=== PATIENT | female | born 1980 | race Hispanic/Latino ===

== ENCOUNTER 2017-11-06 22:33 | Emergency (ER) | payer MEDICAID ==
[2017-11-06] MEDS ORDERED: SODIUM CHLORIDE 0.9% 1000ML 1,000 ML IV ONE (22:58)
[2017-11-06] MEDS ORDERED: HYDROCODONE/ACETAMINOPHEN 5/325 MG TAB ONE (22:59)
[2017-11-06 23:01] LABS: BASOPHILS % (AUTO) 0.5 % (0.0-5.0); EOSINOPHILS % (AUTO) 2.5 % (0.0-8.0); HEMATOCRIT 39.9 % (36-48); LYMPHOCYTES % (AUTO) 34.4 % (21.0-51.0); MEAN CORPUSCULAR HEMOGLOBIN 28.8 pg (27.0-33.0); MEAN CORPUSCULAR HGB CONC 33.6 g/dL (32.0-36.0); MEAN CORPUSCULAR VOLUME 85.8 fL (79-99); MONOCYTES % (AUTO) 8.4 % (3.0-13.0); NEUTROPHILS % (AUTO) 54.2 % (40.0-77.0); PLATELET COUNT (AUTO) 294 K/uL (130-400); RED BLOOD CELL COUNT(AUTO) 4.66 MIL/uL (4.00-5.50); RED CELL DISTRIBUTION WIDTH 13.9 % (11.0-15.5); WHITE BLOOD COUNT (AUTO) 7.9 K/uL (4.8-10.8)
[2017-11-06] MEDS ORDERED: HYDROCODONE/ACETAMINOPHEN 7.5/325 MG 15 ML UDCUP ONE (23:02)
[2017-11-06 23:03] LABS: APPEARANCE,URINE Cloudy (CLEAR); BILIRUBIN,URINE Negative (NEGATIVE); COLOR,URINE Yellow (YELLOW); GLUCOSE, URINE (UA) Negative (NEGATIVE); KETONES,URINE Trace mg/dL (NEGATIVE); LEUKOCYTE ESTERASE ,URINE Negative (NEGATIVE); NITRATE,URINE Negative (NEGATIVE); OCCULT BLOOD,URINE Negative (NEGATIVE); PROTEIN,URINE Negative (NEGATIVE)
[2017-11-06 23:08] LABS: BACTERIA,URINE Few /HPF (None Seen); MUCUS,URINE Many LPF (None Seen); RBC,URINE None Seen /HPF (0-1); SQUAMOUS EPITHELIAL CELL,UR 30-50 /HPF (0-2); WBC,URINE 0-1 /HPF (0-1)
[2017-11-06 23:10] LABS: CREATININE 0.9 mg/dL (0.5-1.5); POTASSIUM 3.6 mmol/L (3.5-5.1)
[2017-11-06 23:14] LABS: ALBUMIN 3.6 g/dL (3.5-5.0); BILIRUBIN,TOTAL 0.2 mg/dL (0.2-1.0); TOTAL PROTEIN, SERUM 7.5 g/dL (6.0-8.3)
[2017-11-06] MEDS ORDERED: ISOVUE-370 50ML VIAL IV ONE ×2 (23:15→23:16)
== END 2017-11-07 00:05 | disposition home or self-care (01) ==
LOC: EDH 22:33
DX: R10.13 Epigastric pain (principal); R19.7 Diarrhea, unspecified; R11.0 Nausea; J45.909 Unspecified asthma, uncomplicated; Z98.51 Tubal ligation status; Z90.49 Acquired absence of other specified parts of digestive tract; Z91.040 Latex allergy status
CPT/HCPCS: 36415; 74177; 80053; 81001; 81025; 85025; 96360; 99285; J7030; Q9967 ×2

== ENCOUNTER 2017-11-11 07:57 | Emergency (ER) | payer MEDICAID ==
[2017-11-11 08:28] LABS: BASOPHILS % (AUTO) 0.8 % (0.0-5.0); EOSINOPHILS % (AUTO) 3.6 % (0.0-8.0); HEMATOCRIT 37.8 % (36-48); MEAN CORPUSCULAR HEMOGLOBIN 28.8 pg (27.0-33.0); MEAN CORPUSCULAR HGB CONC 34.2 g/dL (32.0-36.0); MEAN CORPUSCULAR VOLUME 84.2 fL (79-99); MONOCYTES % (AUTO) 7.7 % (3.0-13.0); NEUTROPHILS % (AUTO) 53.9 % (40.0-77.0); NUCLEATED RED BLOOD CELLS 0.1 % (0.0-0.19); PLATELET COUNT (AUTO) 235 K/uL (130-400); RED BLOOD CELL COUNT(AUTO) 4.49 MIL/uL (4.00-5.50); RED CELL DISTRIBUTION WIDTH 14.2 % (11.0-15.5); WHITE BLOOD COUNT (AUTO) 5.2 K/uL (4.8-10.8)
[2017-11-11 08:34] LABS: APPEARANCE,URINE Cloudy (CLEAR); BILIRUBIN,URINE Negative (NEGATIVE); COLOR,URINE Yellow (YELLOW); GLUCOSE, URINE (UA) Negative (NEGATIVE); KETONES,URINE Negative (NEGATIVE); LEUKOCYTE ESTERASE ,URINE Negative (NEGATIVE); NITRATE,URINE Negative (NEGATIVE); OCCULT BLOOD,URINE Negative (NEGATIVE); PROTEIN,URINE Negative (NEGATIVE)
[2017-11-11 08:50] LABS: CREATININE 0.7 mg/dL (0.5-1.5); POTASSIUM 3.9 mmol/L (3.5-5.1)
[2017-11-11 08:54] LABS: ALBUMIN 3.6 g/dL (3.5-5.0); BILIRUBIN,TOTAL 0.3 mg/dL (0.2-1.0); TOTAL PROTEIN, SERUM 7.4 g/dL (6.0-8.3)
[2017-11-11] MEDS ORDERED: SODIUM CHLORIDE 0.9% 1000ML 1,000 ML IV ONE (09:15)
[2017-11-11] MEDS ORDERED: DIATR MEGLU/DIATRIZOATE SODIUM 30 ML BOTTLE ONE (10:09)
[2017-11-11] MEDS ORDERED: FENTANYL CITRATE PF 50 MCG/1 ML 2ML VIAL ONE (10:50)
[2017-11-11] MEDS ORDERED: IOPAMIDOL-370 75 ML VIAL IV ONE (12:13)
== END 2017-11-11 14:35 | disposition home or self-care (01) ==
LOC: EDH 07:57
DX: G89.18 Other acute postprocedural pain (principal); J45.909 Unspecified asthma, uncomplicated; R10.12 Left upper quadrant pain; Z88.8 Allergy status to other drugs, medicaments and biological substances; Z91.040 Latex allergy status
CPT/HCPCS: 36415; 74177; 80053; 81003; 81025; 83690; 85025; 96361; 96374; 99285; J3010; J7030; Q9963; Q9967

== ENCOUNTER 2020-04-28 07:51 | Day surgery (SDC) | payer MEDICAID ==
[~2020-04-28] VITALS: Ht 160 cm; Wt 81.6 kg
[~2020-04-28 07:51] MED LIST: SODIUM CHLORIDE 0.9% 1000ML 1,000 ML IV ONE
[2020-04-28 10:01] VITALS: BP 121/83
[2020-04-28] MEDS ORDERED: MULT-1203 PO (10:44)
[2020-04-28] MEDS ORDERED: AUD IH (10:44)
[2020-04-28] MEDS ORDERED: FAMO10TA39 PO (10:44)
[2020-04-28] MEDS ORDERED: SERT100T PO (10:44)
[2020-04-28] MEDS ORDERED: PROPOFOL 10 MG/ML 20ML VIAL IV ONE (11:31)
[2020-04-28] MEDS ORDERED: LIDOCAINE HCL-MPF 2% 5ML VIAL ONE (11:32)
[2020-04-28] MEDS ORDERED: GLYCOPYRROLATE 1 MG/5 ML SYRINGE ONE (11:32)
[2020-04-28 11:43] VITALS: BP 102/48
[2020-04-28 11:48] VITALS: BP 103/48
[2020-04-28 11:53] VITALS: BP 108/53
[2020-04-28 11:58] VITALS: BP 111/60
[2020-04-28 12:03] VITALS: BP 114/67
== END 2020-04-28 12:15 | disposition home or self-care (01) ==
LOC: DAH 07:51 → ENDO 07:51
PROVIDERS: ATTEND Surgery
DX: K21.9 Gastro-esophageal reflux disease without esophagitis (principal); K29.50 Unspecified chronic gastritis without bleeding; Z98.84 Bariatric surgery status; Z20.828 Contact with and (suspected) exposure to other viral communicable diseases
CPT/HCPCS: 36415; 43239; 88305; 88342; A4215; A4221; A4222; A4223; A4606; A4620; A4663; C9803; J2704; J3490 ×2; J7030; U0003

== ENCOUNTER 2020-05-19 12:00 | Inpatient (IN) | payer MEDICAID ==
[~2020-05-19] VITALS: Ht 157.5 cm; Wt 80.8 kg
[~2020-05-19 12:00] MED LIST changes: +AUD IH; +MULT-1203 PO; +SERT100T PO; -SODIUM CHLORIDE 0.9% 1000ML 1,000 ML IV ONE
[2020-05-21 12:16] LABS: BASOPHILS % (AUTO) 0.6 % (0.0-5.0); EOSINOPHILS % (AUTO) 1.9 % (0.0-8.0); HEMATOCRIT 36.4 % (36-48); LYMPHOCYTES % (AUTO) 35.3 % (21.0-51.0); MEAN CORPUSCULAR HEMOGLOBIN 24.7 pg (27.0-33.0); MEAN CORPUSCULAR HGB CONC 30.5 g/dL (32.0-36.0); MEAN CORPUSCULAR VOLUME 81.1 fL (79-99); MONOCYTES % (AUTO) 7.7 % (3.0-13.0); NEUTROPHILS % (AUTO) 54.3 % (40.0-77.0); PLATELET COUNT (AUTO) 330 K/uL (130-400); RED BLOOD CELL COUNT(AUTO) 4.49 MIL/uL (4.00-5.50); RED CELL DISTRIBUTION WIDTH 13.8 % (11.0-15.5); WHITE BLOOD COUNT (AUTO) 5.2 K/uL (4.8-10.8)
[2020-05-21 12:32] LABS: INR 0.94 (0.85-1.15); PARTIAL THROMBOPLASTIN TIME 25.9 SEC (26.3-35.5); PROTHROMBIN TIME 10.2 SEC (9.6-11.6)
[2020-05-23] MEDS ORDERED: SODIUM CHLORIDE 0.9% 1000ML 1,000 ML IV SCH (11:30)
[2020-05-23 12:24] VITALS: BP 133/79
[2020-05-23] MEDS ORDERED: HYDR-3830 PO (12:42)
[2020-05-26] VITALS (22 sets, daily range): BP systolic 110–145; BP diastolic 20–92
[2020-05-26] MEDS: CEFAZOLIN SODIUM 1 GM VIAL IVP SCH ×3 (06:00→16:18)
[2020-05-26] MEDS ORDERED: MULT-1192 PO (07:19)
[2020-05-26] MEDS ORDERED: LIDOCAINE PF 2% 5ML ABBOJECT ONE (07:35)
[2020-05-26] MEDS ORDERED: MIDAZOLAM HCL 1 MG/ML 2ML VIAL ONE (07:36)
[2020-05-26] MEDS ORDERED: PROPOFOL 10 MG/ML 20ML VIAL IV ONE ×2 (07:37→09:43)
[2020-05-26] MEDS ORDERED: ROCURONIUM 10MG/1ML SYR 10 MG/ML ML ONE (07:37)
[2020-05-26] MEDS ORDERED: ONDANSETRON HCL 4 MG/2 ML VIAL ONE ×2 (07:37→08:55)
[2020-05-26] MEDS ORDERED: FENTANYL CITRATE PF 50 MCG/1 ML 2ML VIAL ONE ×2 (07:38→09:19)
[2020-05-26] MEDS ORDERED: CITRIC ACID/SODIUM CITRATE 30 ML UDCUP ONE (07:43)
[2020-05-26] MEDS ORDERED: FAMOTIDINE/PF 20 MG/2 ML VIAL IV ONE (07:44)
[2020-05-26] MEDS ORDERED: KETAMINE HCL 100 MG/ML 5ML VIAL IJ ONE (08:31)
[2020-05-26] MEDS ORDERED: BUPIVACAINE/PF 0.5% 30ML VIAL ONE (08:31)
[2020-05-26] MEDS ORDERED: GLYCOPYRROLATE 1 MG/5 ML SYRINGE ONE ×2 (08:35→10:08)
[2020-05-26] MEDS ORDERED: NEOSTIGMINE 5MG/5ML SYR IV ONE (10:09)
[2020-05-26] MEDS ORDERED: SCOPOLAMINE HYDROBROMIDE 1 EACH ADH..PATCH TD ONE (10:37)
[2020-05-26] MEDS ORDERED: ONDANSETRON HCL 4 MG/2 ML VIAL IVP PRN (10:45)
[2020-05-26] MEDS ORDERED: HYDRALAZINE HCL 20 MG/ML VIAL IV PRN (10:45)
[2020-05-26] MEDS: LACTATED RINGERS 1000ML 1,000 ML IV SCH ×2 (10:45→18:51)
[2020-05-26] MEDS ORDERED: MEPERIDINE-PF 25 MG/ML SYG ONE ×2 (11:01→11:11)
[2020-05-26] MEDS ORDERED: PHARMACY COMMUNICATION MISC SCH (13:00)
[2020-05-26] MEDS: MORPHINE SULFATE 5 MG/ML VIAL IVP PRN ×3 (14:34→22:54)
--- NOTE | 2020-05-26 16:00 | NUR ---
PER GUZMAN KEEP PATIENT CLEAR LIQ
[2020-05-26] MEDS: KETOROLAC TROMETHAMINE 30MG/ML IM PRN (16:27)
[2020-05-26] MEDS: ENOXAPARIN SODIUM 30 MG/0.3 ML SQ SCH (20:40)
[2020-05-26] MEDS: FAMOTIDINE/PF 20 MG/2 ML VIAL IV SCH (20:40)
[2020-05-27] VITALS: BP 113/64
[2020-05-27] MEDS: CEFAZOLIN SODIUM 1 GM VIAL IVP SCH ×2 (00:17→08:19)
[2020-05-27] MEDS: KETOROLAC TROMETHAMINE 30MG/ML IM PRN (00:26)
[2020-05-27] MEDS: LACTATED RINGERS 1000ML 1,000 ML IV SCH (03:25)
[2020-05-27] MEDS: MORPHINE SULFATE 5 MG/ML VIAL IVP PRN (03:25)
[2020-05-27 04:00] VITALS: BP 105/55
--- NOTE | 2020-05-27 05:10 | NUR ---
GAS Pt reports passing gas last night,she's been ambulating to the bathroom.Complains of pain and been medicated as per E sep.Abdomen soft,active bowel sounds.Band aid drsng x 7 dry and intact.
[2020-05-27 05:23] LABS: BASOPHILS % (AUTO) 0.2 % (0.0-5.0); HEMATOCRIT 29.9 % (36-48); MEAN CORPUSCULAR HEMOGLOBIN 25.5 pg (27.0-33.0); MEAN CORPUSCULAR HGB CONC 31.8 g/dL (32.0-36.0); MEAN CORPUSCULAR VOLUME 80.4 fL (79-99); MONOCYTES % (AUTO) 10.1 % (3.0-13.0); NEUTROPHILS % (AUTO) 72.4 % (40.0-77.0); PLATELET COUNT (AUTO) 246 K/uL (130-400); RED BLOOD CELL COUNT(AUTO) 3.72 MIL/uL (4.00-5.50); RED CELL DISTRIBUTION WIDTH 13.8 % (11.0-15.5); WHITE BLOOD COUNT (AUTO) 8.8 K/uL (4.8-10.8)
[2020-05-27 05:33] LABS: CREATININE 0.7 mg/dL (0.5-1.5); INR 1.04 (0.85-1.15); PARTIAL THROMBOPLASTIN TIME 25.6 SEC (26.3-35.5); POTASSIUM 3.8 mmol/L (3.5-5.1); PROTHROMBIN TIME 11.2 SEC (9.6-11.6)
--- NOTE | 2020-05-27 07:29 | NUR ---
DR BRANDON TAYLOR ROUNDED ORDERS RECEIVED TO CHANGE FLUID TO KVO , D/C TELEMETRY, TYLENOL ELIXER 10CC Q 4HOUR PRN FOR PAIN. ORDERS PLACED
[2020-05-27 07:55] VITALS: BP 117/75
[2020-05-27] MEDS: SERTRALINE HCL 50 MG TABLET PO SCH (08:19)
[2020-05-27] MEDS: FAMOTIDINE/PF 20 MG/2 ML VIAL IV SCH ×2 (08:20→21:10)
[2020-05-27] MEDS: ENOXAPARIN SODIUM 30 MG/0.3 ML SQ SCH ×2 (08:21→21:12)
[2020-05-27] MEDS: APAP/CODEINE 120/12MG 5ML PO PRN ×4 (08:34→21:13)
--- NOTE | 2020-05-27 09:54 | NUR ---
PATIENT UP WALKING IN HALLWAY
[2020-05-27 11:51] VITALS: BP 126/69
[2020-05-27 16:28] VITALS: BP 147/81
[2020-05-27 20:00] VITALS: BP 136/79
[2020-05-27] MEDS ORDERED: HYDROXYZINE HCL 10 MG TABLET PO SCH (21:00)
[2020-05-28] VITALS: BP 123/58
[2020-05-28] MEDS: APAP/CODEINE 120/12MG 5ML PO PRN ×3 (03:37→13:01)
[2020-05-28 04:00] VITALS: BP 134/71
[2020-05-28 07:30] VITALS: BP 120/55
[2020-05-28] MEDS: FAMOTIDINE/PF 20 MG/2 ML VIAL IV SCH (08:23)
[2020-05-28] MEDS: SERTRALINE HCL 50 MG TABLET PO SCH (08:23)
[2020-05-28] MEDS: ENOXAPARIN SODIUM 30 MG/0.3 ML SQ SCH (08:24)
[2020-05-28 11:00] VITALS: BP 127/70
--- NOTE | 2020-05-28 14:20 | NUR ---
DCP CM met with pt discussed dc plans. Pt is independent prior to admission, lives at home with spouse Yassine Fernández and 2 boys 15 and 11 y/o. Denies any other equipments/services. Feels safe to go back home, still drives and works, spouse able to assist with transportation and needs as necessary. Addendum: 05/28/20 at 1421 by BERTO HARGROVE LVN CM Amended: Links added.
--- NOTE | 2020-05-28 15:13 | NUR ---
RDSCREEN -POST-OP BARIATRIC PROCEDURE Pt POD #2. Pt is tolerating Phase I Clear Liquid Diet order with no GI distress. Pt has been ambulating hallways, Pt reports ambulated three times today prior to RD visit. Pt reports no BM or flatus since procedure. Pt had abdominal pain on return from third walk and reports sharp and not related to incisions. Pt reports no longer having GERD since the procedure. Pt encouraged to continue to ambulate, consume liquids gradually. RD provided Bariatric Post-Op meal planning education with Protein recommendations.
== END 2020-05-28 19:30 | disposition home or self-care (01) | DRG 220 ==
LOC: EDSTATUS 12:00 → DAHIP 05-26 05:56 → 3BH 05-26 11:40 → EDSTATUS 05-26 12:00
PROVIDERS: ADMIT Surgery; ATTEND Surgery
PROC: 0D164ZA Bypass Stomach to Jejunum, Percutaneous Endoscopic Approach (ICD-10-PCS; principal; 2020-05-26 08:05)
PROC: 0DB64ZZ Excision of Stomach, Percutaneous Endoscopic Approach (ICD-10-PCS; 2020-05-26 08:05)
DX: K21.9 Gastro-esophageal reflux disease without esophagitis (principal); J45.909 Unspecified asthma, uncomplicated; F41.9 Anxiety disorder, unspecified; Z20.828 Contact with and (suspected) exposure to other viral communicable diseases; Z91.040 Latex allergy status; Z98.84 Bariatric surgery status; Z90.49 Acquired absence of other specified parts of digestive tract
CPT/HCPCS: 36415; 43235; 71045; 80048; 84703; 85025; 85610; 85730; 86850; 86900; 86901; 93005; 94760; A4606; G0378; J0690; J1650; J1885; J2001; J2175; J2250; J2270; J2405; J2704; J2710; J3010; J3490; J7030; J7120; U0003

== ENCOUNTER 2020-05-30 19:23 | Observation (INO) | payer MEDICAID ==
[~2020-05-30] VITALS: Ht 160 cm; Wt 86.9 kg
[~2020-05-30 19:23] MED LIST changes: +HYDR-3830 PO; +MULT-1192 PO
[2020-05-30 19:50] LABS: BASOPHILS % (AUTO) 0.2 % (0.0-5.0); LYMPHOCYTES % (AUTO) 15.8 % (21.0-51.0); MEAN CORPUSCULAR HEMOGLOBIN 25.4 pg (27.0-33.0); MEAN CORPUSCULAR HGB CONC 31.5 g/dL (32.0-36.0); MEAN CORPUSCULAR VOLUME 80.7 fL (79-99); MONOCYTES % (AUTO) 7.9 % (3.0-13.0); NEUTROPHILS % (AUTO) 72.8 % (40.0-77.0); PLATELET COUNT (AUTO) 303 K/uL (130-400); RED BLOOD CELL COUNT(AUTO) 4.09 MIL/uL (4.00-5.50); RED CELL DISTRIBUTION WIDTH 14.4 % (11.0-15.5); WHITE BLOOD COUNT (AUTO) 8.6 K/uL (4.8-10.8)
[2020-05-30 20:00] LABS: INR 1.02 (0.85-1.15); PARTIAL THROMBOPLASTIN TIME 26.4 SEC (26.3-35.5)
[2020-05-30 20:07] LABS: CREATININE 0.8 mg/dL (0.5-1.5); POTASSIUM 3.9 mmol/L (3.5-5.1)
[2020-05-30 20:12] LABS: ALBUMIN 3.3 g/dL (3.5-5.0); BILIRUBIN,TOTAL 0.3 mg/dL (0.2-1.0); TOTAL PROTEIN, SERUM 7.6 g/dL (6.0-8.3)
[2020-05-30 20:17] LABS: APPEARANCE,URINE Clear (CLEAR); BILIRUBIN,URINE Negative (NEGATIVE); COLOR,URINE Yellow (YELLOW); GLUCOSE, URINE (UA) Negative (NEGATIVE); KETONES,URINE Trace mg/dL (NEGATIVE); LEUKOCYTE ESTERASE ,URINE Moderate (NEGATIVE); NITRATE,URINE Negative (NEGATIVE); OCCULT BLOOD,URINE Negative (NEGATIVE); PH,URINE 7.5 (5.0-8.0); PROTEIN,URINE Negative (NEGATIVE)
[2020-05-30 20:26] LABS: MUCUS,URINE Many LPF (None Seen)
[2020-05-30 20:27] LABS: BACTERIA,URINE Few /HPF (None Seen); RBC,URINE None Seen /HPF (0-1)
[2020-05-30] MEDS ORDERED: IOHEXOL-350 75 ML VIAL IV ONE (20:49)
[2020-05-30] MEDS ORDERED: NITROGLYCERIN 0.4 MG SL TAB SL PRN (23:45)
[2020-05-30] MEDS ORDERED: ONDANSETRON HCL 4 MG/2 ML VIAL IV PRN (23:45)
[2020-05-30] MEDS ORDERED: GLUCAGON 1MG KIT 1 MG ML IM PRN (23:45)
[2020-05-30] MEDS ORDERED: DEXTROSE 50%-WATER 50 ML DISP.SYRIN IV PRN (23:45)
[2020-05-31] MEDS ORDERED: INSULIN HUMULIN R 100 UNIT/ML 3ML SQ SCH
[2020-05-31] MEDS ORDERED: ACETAMINOPHEN 650 MG SUPPOSITORY RC PRN ×2
[2020-05-31 00:20] VITALS: BP 104/59
[2020-05-31] MEDS ORDERED: MELA10TA2 PO (00:26)
[2020-05-31] MEDS: SODIUM CHLORIDE 0.9% 1000ML 1,000 ML IV SCH ×2 (00:55→09:45)
[2020-05-31] MEDS: MORPHINE SULFATE 4 MG/1ML SYG IV PRN ×2 (02:34→12:58)
[2020-05-31 04:00] VITALS: BP 118/68
[2020-05-31] MEDS: MORPHINE SULFATE 2 MG/ML 1ML SYG IV PRN ×2 (04:08→08:21)
[2020-05-31 06:11] LABS: HEMATOCRIT 29.6 % (36-48); MEAN CORPUSCULAR HGB CONC 30.7 g/dL (32.0-36.0); MEAN CORPUSCULAR VOLUME 81.3 fL (79-99); PLATELET COUNT (AUTO) 251 K/uL (130-400); RED BLOOD CELL COUNT(AUTO) 3.64 MIL/uL (4.00-5.50); RED CELL DISTRIBUTION WIDTH 14.4 % (11.0-15.5); WHITE BLOOD COUNT (AUTO) 6.7 K/uL (4.8-10.8)
[2020-05-31 06:24] LABS: ALBUMIN 2.8 g/dL (3.5-5.0); BILIRUBIN,TOTAL 0.3 mg/dL (0.2-1.0); CREATININE 0.7 mg/dL (0.5-1.5); MAGNESIUM 1.9 mg/dL (1.80-2.40); POTASSIUM 4.3 mmol/L (3.5-5.1); TOTAL PROTEIN, SERUM 6.1 g/dL (6.0-8.3)
[2020-05-31 08:00] VITALS: BP 122/73
[2020-05-31 08:08] LABS: EOSINOPHILS % (MANUAL) 2 % (1-6); LYMPHOCYTES % (MANUAL) 19 % (22-44); MONOCYTES % (MANUAL) 7 % (2-9); PLATELET MORPHOLOGY COMMENT ADEQUATE; SEGMENTED NEUTROPHILS % 72 % (40-70)
[2020-05-31] MEDS ORDERED: ENOXAPARIN SODIUM 30 MG/0.3 ML SQ SCH (09:00)
[2020-05-31] MEDS ORDERED: FAMOTIDINE/PF 20 MG/2 ML VIAL IV SCH (09:00)
[2020-05-31 11:00] VITALS: BP 128/73
[2020-05-31] MEDS ORDERED: FLUCONAZOLE 100 MG TAB PO SCH (11:30)
[2020-05-31] MEDS ORDERED: KETO10TA2 PO (15:45)
--- NOTE | 2020-05-31 16:00 | NUR ---
NOTE DISCHARGE INSTRUCTIONS GIVEN TO PATIENT AT THIS TIME. REFER TO DC SUMMARY FOR DETAILS. DR TAYLOR WAS IN THE ROOM EARLIER AND HE TOLD HER HE HAD SEEN THE CT FILMS AND HE FELT THAT SHE WAS EXPERIENCING POST OPERATIVE PAIN. PATIENT DENIES EVER HAVING N/V. SHE HAD BM YESTERDAY IN [place]. HER PAIN WAS IN ONE AREA OF THE ABDOMEN ONLY. LUQ AROUND ONE OF THE SURGICAL INCISIONS. PATIENT TO CONTINUE BARIATRIC SURGERY AND INCREASE AMBULATION INSTRUCTED PER DR TAYLOR PRIOR TO HAVING GASTRIC BYPASS EARLIER THIS WEEK.
[2020-05-31] MEDS ORDERED: ACETAMINOPHEN-CODEINE 300/30MG TAB ONE (16:32)
== END 2020-05-31 18:05 | disposition home or self-care (01) ==
LOC: EDH 19:23 → INTOOBSV 19:24 → EDHIP 19:24 → 3AH 05-31 00:28
PROVIDERS: ADMIT Family Medicine; ATTEND Family Medicine
DX: K56.609 Unspecified intestinal obstruction, unspecified as to partial versus complete obstruction (principal); J45.909 Unspecified asthma, uncomplicated; K21.9 Gastro-esophageal reflux disease without esophagitis; E66.9 Obesity, unspecified; K59.00 Constipation, unspecified; Z90.49 Acquired absence of other specified parts of digestive tract; Z98.51 Tubal ligation status; Z98.84 Bariatric surgery status; Z79.899 Other long term (current) drug therapy; Z91.018 Allergy to other foods; Z91.040 Latex allergy status; Z68.33 Body mass index [BMI] 33.0-33.9, adult
CPT/HCPCS: 36415 ×2; 71045; 74177; 80053 ×2; 81001; 81025; 83605; 83690; 83735; 84484; 85025 ×2; 85610; 85730; 87088; 93005; 96361; 96372; 96374; 96375; 96376; 99285; G0378 ×19; J1650; J2270 ×2; J3490; Q9967

== ENCOUNTER 2020-06-16 12:21 | Emergency (ER) | payer MEDICAID ==
[~2020-06-16 12:21] MED LIST changes: +KETO10TA2 PO; +MELA10TA2 PO; -MULT-1192 PO; -MULT-1203 PO
[2020-06-16 12:56] LABS: BASOPHILS % (AUTO) 0.6 % (0.0-5.0); EOSINOPHILS % (AUTO) 4.7 % (0.0-8.0); HEMATOCRIT 35.7 % (36-48); LYMPHOCYTES % (AUTO) 32.6 % (21.0-51.0); MEAN CORPUSCULAR HEMOGLOBIN 25.6 pg (27.0-33.0); MEAN CORPUSCULAR HGB CONC 31.7 g/dL (32.0-36.0); MONOCYTES % (AUTO) 6.8 % (3.0-13.0); NEUTROPHILS % (AUTO) 55.1 % (40.0-77.0); PLATELET COUNT (AUTO) 311 K/uL (130-400); RED BLOOD CELL COUNT(AUTO) 4.41 MIL/uL (4.00-5.50); RED CELL DISTRIBUTION WIDTH 14.6 % (11.0-15.5); WHITE BLOOD COUNT (AUTO) 4.7 K/uL (4.8-10.8)
[2020-06-16 13:03] LABS: APPEARANCE,URINE Cloudy (CLEAR); BILIRUBIN,URINE Small (NEGATIVE); COLOR,URINE Dark Yellow (YELLOW); GLUCOSE, URINE (UA) Negative (NEGATIVE); KETONES,URINE Trace mg/dL (NEGATIVE); LEUKOCYTE ESTERASE ,URINE Small (NEGATIVE); NITRATE,URINE Negative (NEGATIVE); OCCULT BLOOD,URINE Negative (NEGATIVE); PH,URINE 5.5 (5.0-8.0); PROTEIN,URINE Trace mg/dL (NEGATIVE)
[2020-06-16 13:05] LABS: CREATININE 0.7 mg/dL (0.5-1.5); POTASSIUM 3.5 mmol/L (3.5-5.1)
[2020-06-16 13:09] LABS: ALBUMIN 3.6 g/dL (3.5-5.0); BILIRUBIN,TOTAL 0.2 mg/dL (0.2-1.0); TOTAL PROTEIN, SERUM 7.6 g/dL (6.0-8.3)
[2020-06-16 13:09] LABS: BACTERIA,URINE Rare /HPF (None Seen); CALCIUM OXALATE CRYSTALS,UR Few /LPF (None Seen); MUCUS,URINE Many LPF (None Seen); SQUAMOUS EPITHELIAL CELL,UR Rare /HPF (0-2); WBC,URINE 0-1 /HPF (0-1)
[2020-06-16] MEDS ORDERED: SODIUM CHLORIDE 0.9% 1000ML 1,000 ML IV ONE (13:37)
[2020-06-16] MEDS ORDERED: MORPHINE SULFATE 4 MG/1ML SYG ONE (13:37)
[2020-06-16] MEDS ORDERED: ONDANSETRON HCL 4 MG/2 ML VIAL ONE (13:37)
[2020-06-16] MEDS ORDERED: IOHEXOL-350 75 ML VIAL IV ONE (15:19)
[2020-06-16] MEDS ORDERED: DICYCLOMINE HCL 10 MG/ML 2ML AMP IM ONE (16:47)
[2020-06-16] MEDS ORDERED: KETOROLAC TROMETHAMINE 30MG/ML ONE (16:47)
== END 2020-06-16 16:59 | disposition home or self-care (01) ==
LOC: EDH 12:21
DX: R10.84 Generalized abdominal pain (principal); J45.909 Unspecified asthma, uncomplicated; Z91.040 Latex allergy status; Z88.9 Allergy status to unspecified drugs, medicaments and biological substances
CPT/HCPCS: 36415; 74177; 80053; 81001; 82150; 83690; 85025; 93005; 96372; 96374; 96375; 99285; J0500; J1885; J2270; J2405; J7030; Q9967

== ENCOUNTER 2020-06-27 23:02 | Emergency (ER) | payer MEDICAID ==
[2020-06-27] MEDS ORDERED: SODIUM CHLORIDE 0.9% 1000ML 1,000 ML IV ONE (23:03)
[2020-06-27 23:37] LABS: BASOPHILS % (AUTO) 0.4 % (0.0-5.0); EOSINOPHILS % (AUTO) 3.7 % (0.0-8.0); HEMATOCRIT 36.1 % (36-48); LYMPHOCYTES % (AUTO) 37.2 % (21.0-51.0); MEAN CORPUSCULAR HEMOGLOBIN 25.6 pg (27.0-33.0); MEAN CORPUSCULAR HGB CONC 31.9 g/dL (32.0-36.0); MEAN CORPUSCULAR VOLUME 80.2 fL (79-99); MONOCYTES % (AUTO) 10.5 % (3.0-13.0); PLATELET COUNT (AUTO) 295 K/uL (130-400); RED CELL DISTRIBUTION WIDTH 15.8 % (11.0-15.5); WHITE BLOOD COUNT (AUTO) 5.6 K/uL (4.8-10.8)
[2020-06-27 23:42] LABS: BILIRUBIN,URINE Negative (NEGATIVE); COLOR,URINE Dark Yellow (YELLOW); GLUCOSE, URINE (UA) Negative (NEGATIVE); KETONES,URINE 15 mg/dL (NEGATIVE); LEUKOCYTE ESTERASE ,URINE Small (NEGATIVE); NITRATE,URINE Negative (NEGATIVE); OCCULT BLOOD,URINE Negative (NEGATIVE); PH,URINE 5.5 (5.0-8.0); PROTEIN,URINE Negative (NEGATIVE)
[2020-06-27 23:43] LABS: APPEARANCE,URINE SLIGHTLY CLOUDY (CLEAR)
[2020-06-27] MEDS ORDERED: METOCLOPRAMIDE 10 MG/2 ML VIAL ONE (23:43)
[2020-06-27] MEDS ORDERED: PANTOPRAZOLE 40 MG/VIAL ONE (23:44)
[2020-06-27] MEDS ORDERED: FAMOTIDINE/PF 20 MG/2 ML VIAL IV ONE (23:44)
[2020-06-27] MEDS ORDERED: ONDANSETRON HCL 4 MG/2 ML VIAL ONE (23:44)
[2020-06-27 23:45] LABS: HCG,QUAL RESULT NEGATIVE (NEGATIVE)
[2020-06-27 23:48] LABS: CREATININE 0.7 mg/dL (0.5-1.5); POTASSIUM 3.7 mmol/L (3.5-5.1)
[2020-06-27 23:51] LABS: INR 0.97 (0.85-1.15); PARTIAL THROMBOPLASTIN TIME 26.8 SEC (26.3-35.5); PROTHROMBIN TIME 10.5 SEC (9.6-11.6)
[2020-06-27 23:53] LABS: BILIRUBIN,TOTAL 0.3 mg/dL (0.2-1.0)
[2020-06-27 23:59] LABS: RBC,URINE 0-1 /HPF (0-1)
[2020-06-28] LABS: BACTERIA,URINE Few /HPF (None Seen); MUCUS,URINE Moderate LPF (None Seen); SQUAMOUS EPITHELIAL CELL,UR 0-2 /HPF (0-2)
[2020-06-28] MEDS ORDERED: LIDOCAINE HCL 2% VISCOUS 15 ML UDCUP ONE (00:42)
[2020-06-28] MEDS ORDERED: MAG HYDROX/AL HYDROX/SIMETH ES 30 ML SUSP UDCUP ONE (00:42)
== END 2020-06-28 02:04 | disposition home or self-care (01) ==
LOC: EDH 23:02
DX: K29.00 Acute gastritis without bleeding (principal); K59.00 Constipation, unspecified; E86.0 Dehydration; J45.909 Unspecified asthma, uncomplicated; Z98.51 Tubal ligation status; Z91.040 Latex allergy status; Z98.890 Other specified postprocedural states
CPT/HCPCS: 36415; 80053; 81001; 81025; 83690; 85025; 85610; 85730; 96361; 96374; 96375; 99284; C9113; J2405; J2765; J3490; J7030

== ENCOUNTER → 2020-12-08 | Outpatient (CLI) | payer MEDICAID ==
[~2020-12-08] MED LIST changes: +IOHEXOL-350 75 ML VIAL IV ONE
== END | disposition home or self-care (01) ==
LOC: RAH 16:47
PROVIDERS: ATTEND Internal Medicine Gastroenterology
DX: R10.13 Epigastric pain (principal); R11.2 Nausea with vomiting, unspecified
CPT/HCPCS: 74170; Q9967

== ENCOUNTER → 2021-01-07 | Outpatient (CLI) | payer MEDICAID ==
[~2021-01-07] MED LIST changes: +CEFAZOLIN SODIUM 1 GM VIAL IVP SCH; -IOHEXOL-350 75 ML VIAL IV ONE
[2021-01-07 09:58] LABS: BASOPHILS % (AUTO) 0.7 % (0.0-5.0); EOSINOPHILS % (AUTO) 1.6 % (0.0-8.0); HEMATOCRIT 34.1 % (36-48); MEAN CORPUSCULAR HEMOGLOBIN 24.5 pg (27.0-33.0); MEAN CORPUSCULAR HGB CONC 29.6 g/dL (32.0-36.0); MEAN CORPUSCULAR VOLUME 82.6 fL (79-99); MONOCYTES % (AUTO) 9.5 % (3.0-13.0); PLATELET COUNT (AUTO) 285 K/uL (130-400); RED BLOOD CELL COUNT(AUTO) 4.13 MIL/uL (4.00-5.50); RED CELL DISTRIBUTION WIDTH 13.8 % (11.0-15.5); WHITE BLOOD COUNT (AUTO) 4.3 K/uL (4.8-10.8)
[2021-01-07 10:04] LABS: CREATININE 0.8 mg/dL (0.5-1.5)
[2021-01-07 10:10] LABS: INR 1.02 (0.85-1.15); PROTHROMBIN TIME 11.1 SEC (9.6-11.6)
[2021-01-07 10:11] LABS: PARTIAL THROMBOPLASTIN TIME 25.5 SEC (26.3-35.5)
== END | disposition home or self-care (01) ==
LOC: DAH 10:00 → EDSTATUS 01-12 10:00
PROVIDERS: ATTEND Surgery
DX: K80.80 Other cholelithiasis without obstruction (principal); Z20.822 Contact with and (suspected) exposure to COVID-19
CPT/HCPCS: 36415; 80048; 85025; 85610; 85730; 87635; C9803

== ENCOUNTER 2021-02-02 06:55 | Day surgery (SDC) | payer MEDICAID ==
[2021-01-27 10:04] LABS: BASOPHILS % (AUTO) 0.4 % (0.0-5.0); EOSINOPHILS % (AUTO) 2.2 % (0.0-8.0); HEMATOCRIT 32.7 % (36-48); MEAN CORPUSCULAR HEMOGLOBIN 24.3 pg (27.0-33.0); MEAN CORPUSCULAR VOLUME 80.9 fL (79-99); MONOCYTES % (AUTO) 9.1 % (3.0-13.0); NEUTROPHILS % (AUTO) 48.1 % (40.0-77.0); PLATELET COUNT (AUTO) 313 K/uL (130-400); RED BLOOD CELL COUNT(AUTO) 4.04 MIL/uL (4.00-5.50); WHITE BLOOD COUNT (AUTO) 4.5 K/uL (4.8-10.8)
[2021-01-27 10:24] LABS: PROTHROMBIN TIME 10.9 SEC (9.6-11.6)
[2021-01-27 10:25] LABS: PARTIAL THROMBOPLASTIN TIME 25.1 SEC (26.3-35.5)
[2021-01-27 11:08] LABS: CREATININE 0.7 mg/dL (0.5-1.5); POTASSIUM 4.4 mmol/L (3.5-5.1)
[2021-01-30 11:51] VITALS: BP 118/72
[2021-02-02] VITALS (17 sets, daily range): BP systolic 109–144; BP diastolic 61–84
[~2021-02-02] VITALS: Ht 160 cm; Wt 74.6 kg
[~2021-02-02 06:55] MED LIST changes: -CEFAZOLIN SODIUM 1 GM VIAL IVP SCH; -KETO10TA2 PO; -SERT100T PO; +TYROSINE PO
[2021-02-02] MEDS ORDERED: LACTATED RINGERS 1000ML 1,000 ML IV ONE (08:13)
[2021-02-02] MEDS: CEFAZOLIN SODIUM 1 GM VIAL ONE ×2 (08:50→10:46)
[2021-02-02] MEDS ORDERED: PROPOFOL 10 MG/ML 20ML VIAL IV ONE (10:18)
[2021-02-02] MEDS ORDERED: LIDOCAINE PF 100MG/5ML (2%) SYRINGE 5ML ONE (10:18)
[2021-02-02] MEDS ORDERED: NEOSTIGMINE 5MG/5ML SYR IV ONE (10:18)
[2021-02-02] MEDS ORDERED: GLYCOPYRROLATE 1 MG/5 ML SYRINGE ONE (10:18)
[2021-02-02] MEDS ORDERED: SUCCINYLCHOLINE 200MG/10ML SYR ONE (10:18)
[2021-02-02] MEDS ORDERED: DEXAMETHASONE SOD PHOSPHATE 10MG/ML 1ML VIAL ONE (10:18)
[2021-02-02] MEDS ORDERED: ONDANSETRON 4MG INJ ONE (10:18)
[2021-02-02] MEDS ORDERED: FENTANYL CITRATE PF 50 MCG/1 ML 2ML VIAL ONE (10:19)
[2021-02-02] MEDS ORDERED: MIDAZOLAM HCL 1 MG/ML 2ML VIAL ONE ×2 (10:19→10:20)
[2021-02-02] MEDS ORDERED: ROCURONIUM 10MG/1ML SYR 10 MG/ML ML ONE (10:19)
[2021-02-02] MEDS ORDERED: MEPERIDINE-PF 25 MG/ML SYG ONE ×3 (10:20→11:58)
[2021-02-02] MEDS ORDERED: BUPIVACAINE/PF 0.5% 10ML VIAL ONE (10:35)
[2021-02-02] MEDS ORDERED: EPHEDRINE SULFATE 50 MG/ML AMPULE ONE (11:00)
[2021-02-02] MEDS ORDERED: LIDOCAINE HCL MPF 1% 5ML VIAL ONE (11:18)
== END 2021-02-02 13:20 | disposition home or self-care (01) ==
LOC: DAH 06:55
PROVIDERS: ATTEND Surgery
DX: R10.11 Right upper quadrant pain (principal); Z20.822 Contact with and (suspected) exposure to COVID-19; K66.0 Peritoneal adhesions (postprocedural) (postinfection); J45.909 Unspecified asthma, uncomplicated; Z90.89 Acquired absence of other organs; Z98.84 Bariatric surgery status; Z90.49 Acquired absence of other specified parts of digestive tract; Z98.51 Tubal ligation status; Z91.040 Latex allergy status; Z79.01 Long term (current) use of anticoagulants; Z98.0 Intestinal bypass and anastomosis status
CPT/HCPCS: 36415; 49329; 80048; 84703; 85025; 85610; 85730; 87635; A4215; A4221; A4222; A4223; A4600; A4606; A4649 ×4; A4663; A6260; C1769 ×3; C9803; J0330; J0690; J1100; J2175 ×3; J2250 ×2; J2405; J2710; J3010; J3490 ×5; J7030; J7120; S0020; J2001; J2704

== ENCOUNTER → 2022-05-31 | Outpatient (CLI) | payer MEDICAID ==
[~2022-05-31] MED LIST changes: +BIOTIN PO; +MVIT PO; -TYROSINE PO; +[UNRECOGNIZED DRUG - OTHER] PO; +vitamin d PO
== END | disposition home or self-care (01) ==
LOC: RAH 11:45
PROVIDERS: ATTEND Obstetrics & Gynecology
DX: Z12.31 Encounter for screening mammogram for malignant neoplasm of breast (principal)
CPT/HCPCS: 77067

== ENCOUNTER → 2022-06-17 | Outpatient (CLI) | payer MEDICAID | END | disposition home or self-care (01) | LOC: RAH 09:41 | PROVIDERS: ATTEND Obstetrics & Gynecology | DX: R92.8 Other abnormal and inconclusive findings on diagnostic imaging of breast (principal) | CPT/HCPCS: 76641; 77065 ==

== ENCOUNTER 2022-10-18 06:34 | Day surgery (SDC) | payer MEDICAID ==
[~2022-10-18] VITALS: Ht 160 cm; Wt 74.4 kg
[~2022-10-18 06:34] MED LIST changes: +0.9% NACL 500ML IV.SOLN 500 ML IV SCH; -BIOTIN PO; +CHOL2000 PO; +HYDR-3421 PO; -HYDR-3830 PO; +L.AC1CAP6 PO; +MAGN400C PO; -MELA10TA2 PO; +MILK THISTLE PO; +MULT-1296 PO; +SAFF176. PO; +SODIUM TETRADECYL SULFATE 30 MG/ML 2 ML VIAL IV SCH; +VITA800012 PO; +[UNRECOGNIZED DRUG - OTHER] PO; -[UNRECOGNIZED DRUG - OTHER] PO; -vitamin d PO
[2022-10-18 06:45] VITALS: BP 120/85
[2022-10-18 07:39] LABS: MEAN CORPUSCULAR HEMOGLOBIN 29.5 pg (27.0-33.0); MEAN CORPUSCULAR HGB CONC 33.5 g/dL (32.0-36.0); MEAN CORPUSCULAR VOLUME 88.1 fL (79-99); PLATELET COUNT (AUTO) 263 K/uL (130-400); RED CELL DISTRIBUTION WIDTH 12.5 % (11.0-15.5); WHITE BLOOD COUNT (AUTO) 4.6 K/uL (4.8-10.8)
[2022-10-18] MEDS ORDERED: PROPOFOL 10 MG/ML 20ML VIAL IV ONE (07:50)
[2022-10-18 07:54] LABS: INR 0.97 (0.85-1.15); PROTHROMBIN TIME 10.6 SEC (9.6-11.6)
[2022-10-18 07:56] LABS: PARTIAL THROMBOPLASTIN TIME 28.5 SEC (26.3-35.5)
[2022-10-18 07:58] LABS: ALBUMIN 3.4 g/dL (3.5-5.0); CREATININE 0.7 mg/dL (0.5-1.5); POTASSIUM 3.9 mmol/L (3.5-5.1); TOTAL PROTEIN, SERUM 6.6 g/dL (6.0-8.3)
[2022-10-18] MEDS ORDERED: FENTANYL CITRATE PF 50 MCG/1 ML 2ML VIAL ONE (08:09)
[2022-10-18 10:02] LABS: EOSINOPHILS % (MANUAL) 2 % (1-6); LYMPHOCYTES % (MANUAL) 41 % (22-44); MAN.DIFF COMMENT-IMPRESSION MANUAL DIFFERENTIAL; MONOCYTES % (MANUAL) 6 % (2-9); PLATELET MORPHOLOGY COMMENT ADEQUATE; SEGMENTED NEUTROPHILS % 51 % (40-70)
[2022-10-18] MEDS ORDERED: 0.9%NACL 1000ML 1,000 ML IV ONE (13:20)
== END 2022-10-18 09:30 | disposition home or self-care (01) ==
LOC: DAH 06:34 → ENDO 06:34
PROVIDERS: ATTEND Surgery
DX: K21.9 Gastro-esophageal reflux disease without esophagitis (principal); Z20.822 Contact with and (suspected) exposure to COVID-19; K76.0 Fatty (change of) liver, not elsewhere classified; R63.5 Abnormal weight gain; Z98.890 Other specified postprocedural states; Z79.899 Other long term (current) drug therapy; J45.909 Unspecified asthma, uncomplicated; Z90.49 Acquired absence of other specified parts of digestive tract; Z98.51 Tubal ligation status; Z90.89 Acquired absence of other organs; Z98.84 Bariatric surgery status; Z68.29 Body mass index [BMI] 29.0-29.9, adult
CPT/HCPCS: 87426; 43236; 80053; 85025; 85610; 85730; 81025; 36415; J3010; J7030 ×2; J3490 ×2; A4620; A4215 ×2; A4223; A4221; A4663; A4216; A4606; J2704

== ENCOUNTER 2022-11-15 06:25 | Day surgery (SDC) | payer MEDICAID ==
[~2022-11-15] VITALS: Ht 160 cm; Wt 72.6 kg
[~2022-11-15 06:25] MED LIST changes: -0.9% NACL 500ML IV.SOLN 500 ML IV SCH; -AUD IH; +BUPR150T3 PO; -MVIT PO
[2022-11-15 06:45] VITALS: BP 130/88
[2022-11-15] MEDS ORDERED: PHARMACY COMMUNICATION MISC SCH (07:00)
[2022-11-15] MEDS ORDERED: PROPOFOL 10 MG/ML 20ML VIAL IV ONE (07:47)
[2022-11-15] MEDS ORDERED: LIDOCAINE PF 100MG/5ML (2%) SYRINGE 5ML ONE (07:47)
[2022-11-15 08:20] VITALS: BP 123/85
[2022-11-15 08:40] VITALS: BP 119/78
[2022-11-15 08:50] VITALS: BP 122/75
== END 2022-11-15 09:05 | disposition home or self-care (01) ==
LOC: DAH 06:25
PROVIDERS: ATTEND Surgery
DX: K21.9 Gastro-esophageal reflux disease without esophagitis (principal); Z20.822 Contact with and (suspected) exposure to COVID-19; K29.70 Gastritis, unspecified, without bleeding; K25.9 Gastric ulcer, unspecified as acute or chronic, without hemorrhage or perforation; E66.01 Morbid (severe) obesity due to excess calories; K76.0 Fatty (change of) liver, not elsewhere classified; J45.909 Unspecified asthma, uncomplicated; D64.9 Anemia, unspecified; Z79.899 Other long term (current) drug therapy; Z98.890 Other specified postprocedural states; Z90.89 Acquired absence of other organs; Z98.51 Tubal ligation status; Z98.891 History of uterine scar from previous surgery; Z98.84 Bariatric surgery status; Z88.8 Allergy status to other drugs, medicaments and biological substances; Z91.040 Latex allergy status; Z68.29 Body mass index [BMI] 29.0-29.9, adult
CPT/HCPCS: 87426; 43239; 81025; J3490 ×3; A4620; A4215 ×2; A4223; A4657; A4222; A4221; A4663; J7030; A4606; J2001; J2704

== ENCOUNTER → 2022-12-20 | Outpatient (CLI) | payer MEDICAID ==
[~2022-12-20] MED LIST changes: -SODIUM TETRADECYL SULFATE 30 MG/ML 2 ML VIAL IV SCH
== END | disposition home or self-care (01) ==
LOC: RAH 09:12
PROVIDERS: ATTEND Obstetrics & Gynecology
DX: R92.8 Other abnormal and inconclusive findings on diagnostic imaging of breast (principal)
CPT/HCPCS: 76641; 77065